=== PATIENT | female | born 1960 | race Caucasian/White ===

== ENCOUNTER 2017-01-10 02:52 | Observation (INO) | payer BC ==
--- NOTE | ~2017-01-10 | CN ---
Consultation Report [facility] [address] [place]. [address] NAME: NIKO CARLIN : 56 STATUS : ADM Selena PAT#: [id number] AGE: 56 ADM/REG DATE : 01/10/17 MR#: [id number] REPORT SERV DATE: 01/10/17 DICTATED BY: MARIANA WETZEL DATE: 01/10/17 REPORT STATUS : Draft TRANSCRIBED BY: MODL DATE: 01/10/17 PULMONARY CONSULTATION DATE OF CONSULTATION: 01/10/2017 REASON FOR CONSULTATION: Optimization of pulmonary status prior to planned vascular surgery. HISTORY OF PRESENT ILLNESS: Ms. Carlin is a 56-year-old white female smoker with a history of restrictive lung disease by PFTs done on 03/07/2015, who was admitted secondary to left lower lobe ischemia. Pulmonary was consulted for assistance with optimization of pulmonary status prior to planned vascular surgery under general anesthesia in approximately two weeks. The patient is complaining of occasional dyspnea on exertion as well as occasional nonproductive cough and wheezing for the past two to three years. She denies sputum production, chest pain, chest tightness, or orthopnea. She states she has never been on pulmonary maintenance medications, but was on the metered dose inhaler (? albuterol) with bronchitis more than one year ago. She denies a diagnosis of COPD or asthma. She is also complaining of hypersomnolence, snoring, and nonrestorative sleep. She has never been evaluated for possible obstructive sleep apnea though she describes "sleeping problems" for which she takes "a sleeping pill." She states she has had prior back surgery, ankle surgery, and a previous hysterectomy. These were all done many years ago and she has no problems with general anesthesia. PAST MEDICAL HISTORY: 1. Smoking/tobacco addiction. 2. Anxiety. 3. Previous back surgery. 4. Previous hysterectomy. 5. Previous left ankle surgery. 6. Vascular disease as noted above. 7. No prior Pneumovax or Prevnar 13 vaccine. FAMILY HISTORY: Daughter has asthma. SOCIAL HISTORY: Ms. Carlin smokes one pack of cigarettes per day and has been a smoker for more than 20 years. She denies ethanol intake, past/present drug use, or chewing tobacco. She denies occupational exposures. She is recently retired from work as a cook for [employer]. She is and has three children. Consultation Report [facility] [address] [place]. [address] NAME: NIKO CARLIN : 56 STATUS : ADM Selena PAT#: [id number] AGE: 56 ADM/REG DATE : 01/10/17 MR#: [id number] REPORT SERV DATE: 01/10/17 DICTATED BY: MARIANA WETZEL DATE: 01/10/17 REPORT STATUS : Draft TRANSCRIBED BY: CHRISTIANO DATE: 01/10/17 MEDICATIONS: Outpatient and inpatient medications were reviewed and are as documented in the record. As noted above, she was on no pulmonary medications prior to admission. REVIEW OF SYSTEMS: A 14-point system review was conducted and is remarkable for the symptoms as described in the history of present illness. PHYSICAL EXAMINATION: VITAL SIGNS: Temperature 97.7 degrees, heart rate 62, blood pressure 155/77, respiratory rate 18, and oxygen saturation 92% on room air. GENERAL: Pleasant obese white female. Alert, oriented, in no apparent distress. HEENT: Normocephalic. Atraumatic. There is no scleral icterus. Conjunctivae are clear. The oropharynx is clear. NECK: Supple. No lymphadenopathy was noted. LUNGS: There are slightly diminished breath sounds throughout. There are no crackles, wheezes, or rhonchi. HEART: Regular rate and rhythm. No ectopy was noted. ABDOMEN: Soft. Nontender. Nondistended. There are normal bowel sounds in all four quadrants. BILATERAL EXTREMITIES: There is trace pretibial edema bilaterally. There is cyanosis of the left toes. There are diminished peripheral pulses, left more than right. There is no clubbing. NEUROLOGICAL: Limited exam was conducted. It was found to be nonfocal. SKIN: No rashes were noted. ASSESSMENT AND PLAN: Ms. Carlin is a 56-year-old white female smoker with a history of restrictive lung disease, as well as dyspnea, cough and wheezing for the past two to three years. As noted above, she was on no outpatient pulmonary medications. Additionally, she has symptoms suggestive of obstructive sleep apnea including hypersomnolence, snoring, and nonrestorative sleep. RECOMMENDATIONS: Outpatient pulmonary function testing to assess for possible COPD - she will be scheduled for an outpatient followup appointment in my office within next 7 to 10 days. We will hold off on starting her on maintenance medications as this may skew her pulmonary function test. While as an inpatient, she will be treated with albuterol via nebulization. Maintenance medications will be started if indicated after review of her outpatient pulmonary function testing. Outpatient polysomnogram - as noted above, she has symptoms suggestive of sleep apnea. She will be scheduled for an outpatient polysomnogram. She is agreeable to wear CPAP if indicated. The plan for this polysomnogram and possible obstructive sleep apnea will not interfere with planned surgery. Baseline chest x-ray while she is an inpatient. Consultation Report [facility] [id number] [place]. [address] NAME: NIKO CARLIN : 56 STATUS : ADM Selena PAT#: [id number] AGE: 56 ADM/REG DATE : 01/10/17 MR#: [id number] REPORT SERV DATE: 01/10/17 DICTATED BY: MARIANA WETZEL DATE: 01/10/17 REPORT STATUS : Draft TRANSCRIBED BY: CHRISTIANO DATE: 01/10/17 I recommend she has a Prevnar 13 vaccine - this will be given to her in the Pulmonary office at her upcoming appointment. I recommend she continues to abstain from smoking as this will improve her postoperative course and decrease potential complications from surgery. She was counseled for more than five minutes regarding the importance of smoking cessation and possible adverse effects of tobacco use. Thank you very much for this consultation. Further recommendations to follow after her outpatient visit in the Pulmonary Clinic within the next 7 to 10 days. TALAT/CHRISTIANO Mariana Wetzel M.D. / [id number] CC: Vincent Groves M.D. UNKNOWN
[~2017-01-10 02:52] MED LIST: ASAB PO; GABAPENTIN; KLONO1 PO; KLONO5; PERCOCET 7.5/321 TAB PO
[2017-01-10] MEDS ORDERED: PERCOCET 7.5/321 TAB PO (16:32)
[2017-01-10] MEDS ORDERED: ASAB PO (16:32)
[2017-01-10] MEDS ORDERED: KLONO5 PO (16:33)
[2017-01-10] MEDS ORDERED: NEUR600 PO (16:33)
[2017-01-10] MEDS ORDERED: CENTRUM PO (16:33)
[2017-01-11] MEDS ORDERED: LIPITOR40 PO (18:23)
[2017-01-11] MEDS ORDERED: PERCOCET 10/3251 TAB PO (18:24)
[2017-02-07] MEDS ORDERED: BREO ELLIPTA INH (15:56)
== END 2017-01-11 18:42 | disposition home or self-care (01) ==
LOC: 2SO 02:52
DX: Z01.810 Encounter for preprocedural cardiovascular examination (principal); J98.4 Other disorders of lung; I99.8 Other disorder of circulatory system; I70.202 Unspecified atherosclerosis of native arteries of extremities, left leg; F41.9 Anxiety disorder, unspecified; F17.210 Nicotine dependence, cigarettes, uncomplicated; Z98.890 Other specified postprocedural states; Z90.710 Acquired absence of both cervix and uterus; Z82.5 Family history of asthma and other chronic lower respiratory diseases; Z82.49 Family history of ischemic heart disease and other diseases of the circulatory system; Z79.82 Long term (current) use of aspirin; Z79.899 Other long term (current) drug therapy
CPT/HCPCS: 71010; 78492; 85730; 93005; 93017; 93306; 94640; 96372; 96374; 96375; 96376; A9270-GY; A9555; G0378; J1170; J2405; J2785

== ENCOUNTER 2017-02-11 06:11 | Inpatient (IN) | payer BC ==
[2017-02-07 11:15] LABS: HEMATOCRIT 37.7 % (36.0-48.0); HEMOGLOBIN 12.6 g/dL (12.0-16.0)
--- NOTE | ~2017-02-11 | DS ---
Discharge Summary [facility] [address] [place]. [address] NAME: NIKO WALLS : 56 STATUS : DIS IN PAT#: [id number] AGE: 56 ADM/REG DATE : 02/11/17 MR#: [id number] REPORT SERV DATE: 02/24/17 DICTATED BY: VINCENT GROVES DATE: 02/24/17 REPORT STATUS : Draft TRANSCRIBED BY: CHRISTIANO DATE: 02/24/17 Data Collection from hospitalization DISCHARGE DIAGNOSES: 1. [place] 4 chronic left lower extremity ischemia. 2. Severe peripheral arterial disease. 3. Asthma. 4. Obesity. 5. Hypercholesterolemia. 6. Tobacco abuse. 7. Chronic obstructive pulmonary disease. CONSULTATIONS: None. PROCEDURES: Aortogram with left lower extremity runoff, percutaneous thrombectomy of the left common iliac, external iliac, and common femoral artery using a [employer] CAT8 thrombectomy device, open thromboendarterectomy of the left common femoral artery and deep femoral artery, left external iliac artery stent, left common femoral artery angioplasty 02/11/2017. PATHOLOGY: Arterial biopsies, left common femoral and common external iliac arteries- organizing clot. DISCHARGE MEDICATIONS: 1. Aspirin 81 mg daily. 2. Lipitor 40 mg daily. 3. Klonopin 0.5 mg at bedtime. 4. Breo Ellipta one puff via inhaler daily. 5. Centrum tablets one tablet daily. 6. Percocet 5/325 mg one to two tablets every 4 hours as needed. 7. Percocet 10/325 mg one tablet every 3 hours as needed. 8. Xarelto 20 mg as instructed. CONDITION AT DISCHARGE: Stable. DISPOSITION: The patient was discharged home on a low-sodium, low-cholesterol, cardiac diet with activities as instructed. She would follow up with me two to three weeks following discharge. She would follow up with Dr. Ravinder Johnston two weeks following discharge. HOSPITAL COURSE: This is a 56-year-old female who is an overweight smoker who presented to [facility] with the sudden onset of ischemic rest pain in the left lower extremity. This was a slightly delayed presentation. It was suspected that this was a thromboembolic event, but an arteriogram demonstrated a left common iliac artery occlusion that seemed somewhat hard. I attempted to cross this, but was unsuccessful. In retrospect, I felt that this was related to atherosclerosis with ischemic rest pain. She underwent a preoperative workup for an open intervention and returns now having treated her groin infection as well as with medical optimization. She is now consented for angiography with intervention and possible bypass. She was admitted to the hospital at this time for further evaluation and Discharge Summary [facility] [place] [address] [place]. [address] NAME: NIKO WALLS : 56 STATUS : DIS IN PAT#: [id number] AGE: 56 ADM/REG DATE : 02/11/17 MR#: [id number] REPORT SERV DATE: 02/24/17 DICTATED BY: VINCENT GROVES DATE: 02/24/17 REPORT STATUS : Draft TRANSCRIBED BY: CHRISTIANO DATE: 02/24/17 treatment. Upon admission, she was taken to the operating room where she underwent the above-mentioned procedure. She tolerated this well and there were no complications. On postop day #1, she had no new complaints. She was afebrile. She had palpable pulses in both feet. Heparin- Coumadin were continued. Over the next couple of days, she continued to progress. INR level was 1.3. Her incisions were clean, dry, and intact. Discharge planning was performed. On 02/14/2017, she said she felt great. Her groin site looked good. She had palpable pedal pulses, but they were slightly irregular. INR level was 1.7. It was felt that she would need an outpatient cardiology evaluation. Discharge instructions were given. Due to her improved and stable condition, she was discharged home with the above-stated instructions. Information collected by: Grisel Cervantes I submit the above information as my discharge summary. NADIA/CHRISTIANO Vincent Groves M.D. / [id number] CC: Pauline Licea DO
--- NOTE | ~2017-02-11 | OP ---
Record Of Operation [facility] [address] [place]. [address] NAME: NIKO WALLS : 56 STATUS : ADM IN PAT#: [id number] AGE: 56 ADM/REG DATE : 02/11/17 MR#: [id number] REPORT SERV DATE: 02/12/17 DICTATED BY: VINCENT GROVES DATE: 02/12/17 REPORT STATUS : Draft TRANSCRIBED BY: MODL DATE: 02/12/17 DATE OF PROCEDURE: 02/11/2017 PREOPERATIVE DIAGNOSIS: [place] 4 chronic left lower extremity ischemia. POSTOPERATIVE DIAGNOSIS: [place] 4 chronic left lower extremity ischemia. PROCEDURES: 1. Aortogram with left lower extremity runoff. 2. Percutaneous thrombectomy of the left common iliac, external iliac, and common femoral arteries using a [employer] CAT8 thrombectomy device. 3. Open thromboendarterectomy of the left common femoral artery and deep femoral artery. 4. Left external iliac artery stent. 5. Left common femoral artery angioplasty. SURGEON: Vincent Groves MD SENIOR STORAGE ADMINISTRATOR: Arianna Etienne MD ANESTHESIA: General. INDICATIONS: The patient is an overweight smoker who presented to [facility] with sudden onset of ischemic rest pain in her left lower extremity. This was a slightly delayed presentation. I suspected that this was a thromboembolic event, but an arteriogram demonstrated a left common iliac artery occlusion that seemed somewhat hard. I attempted to cross this, but was unsuccessful. In retrospect, I thought that this was related to atherosclerosis with ischemic rest pain. She underwent a preoperative workup for an open intervention and returns now, having treated her groin infections as well as with medical optimization. She has now consented for angiography with intervention and possible bypass. DESCRIPTION OF PROCEDURE: After informed consent was obtained, the patient was taken to the operating room and placed in the supine position on the operating table. She was intubated and general anesthesia was administered. Her lower abdomen, groins, and thighs were prepped and draped in the usual sterile fashion. I began with an ultrasound examination of the left common femoral artery. It looked like there was stenosis within the left common femoral artery, but it previously had appeared occluded. This was a different finding than before. Thus, ultrasound-guided access was obtained of the left common femoral artery using a micropuncture technique. An oblique angiogram confirmed puncture within the anterior common femoral artery. I passed a wire up into the aorta with some difficulty. I obtained an angiogram, demonstrating my presence within the true lumen of the aorta. It looked like the left common iliac artery was occluded, but the right common iliac artery was patent. Ultrasound-guided access was then obtained of the right common femoral artery using a micropuncture technique. An oblique angiogram confirmed puncture within the anterior common femoral artery. I passed a wire up into the aorta and placed a 7-Montserratian sheath. A UF catheter was placed into the perirenal aorta. An aortogram demonstrated no hemodynamically significant aortic disease. The renal arteries were patent. The left common iliac artery Record Of [facility] [address] [place]. [address] NAME: NIKO WALLS : 56 STATUS : ADM IN [facility]#: [id number] AGE: 56 ADM/REG DATE : 02/11/17 MR#: [id number] REPORT SERV DATE: 02/12/17 DICTATED BY: VINCENT GROVES DATE: 02/12/17 REPORT STATUS : Draft TRANSCRIBED BY: CHRISTIANO DATE: 02/12/17 was occluded as mentioned before. The right common iliac and external iliac arteries were patent. The right internal iliac artery was patent, but the left internal iliac artery was occluded. I then performed a Penumbra thrombectomy of the left common iliac and external iliac arteries as well as the proximal common femoral artery using a Penumbra CAT8 device. While there was some thrombus removed, it looked like there was either a dissection or chronic thrombus within the left common iliac artery. It also looked like there was minimal flow through the common femoral artery. The profunda had no flow. More distal runoff was not well visualized. I then went up and over the aortic bifurcation from a right transfemoral approach and placed a catheter into the left common femoral artery and SFA. I obtained an angiogram that demonstrated flow through the SFA. The popliteal artery was patent. There was two-vessel runoff via the posterior tibial and peroneal arteries. The proximal anterior tibial artery appeared to be occluded or at least tightly stenotic. There was some flow distal to this in the anterior tibial artery. The arteries otherwise seem normal. Given the fact that there was no flow in the profunda and some of this appeared to be thrombus, I made a skin incision along the left groin. I dissected out the common femoral artery. I dissected out the proximal profunda and the SFA. I had systemically heparinized earlier and I re-dosed throughout the procedure. I created a longitudinal arteriotomy on the left common femoral artery extending onto the origin of the profunda. There was a chronic-appearing thrombus within the left common femoral artery. It extended into the profunda as well as the origin of the SFA. I therefore performed a thromboendarterectomy of the left common femoral artery as well as deep femoral artery. I included the proximal SFA in this. I removed some of the plaque as well as the thrombus. I passed a 4-Montserratian Win catheter into the profunda and pulled out thrombus. I passed a Win catheter into the SFA and did not pull out any thrombus or plaque. I passed my 4- Montserratian Win catheter with some difficulty over a wire into the aorta and pulled it back. I did pull out a little bit of plaque and a little bit of chronic thrombus. I made several passes and was unable to clear up what was in the left common iliac artery. It was still unclear as to whether this was a dissection or some chronic thrombus. I used a 5-Montserratian Win catheter to perform a thrombectomy also. I was unsuccessful. I ultimately concluded that this may have been either a chronic thrombus or a dissection, potentially the latter. I stented the left common iliac artery with an 8 x 59 mm iCAST stent that extended into the left external iliac artery. Imaging obtained afterwards showed a great result. I then used a bovine pericardial patch to patch the left common femoral artery all the way onto the left profunda. I flushed of air and debris before tying down the sutures. Afterwards, there was no pulse in the left common femoral artery. I opened up the patch and passed a catheter proximally. While I did not retrieve any thrombus, there was a great flow. I closed up the hole in the patch. I placed the catheter up and over the aortic bifurcation from a right transfemoral approach and obtained additional imaging that demonstrated a little bit of irregularity in the proximal left common femoral artery. This was very subtle, but I thought clinically significant given the fact that I had a little bit of difficulty passing my Win catheter proximally and I initially did not have a pulse after restoring flow with patch placement. I therefore angioplastied the proximal common femoral artery with a 6 mm balloon. While there was no waist in the balloon, subsequent imaging showed marked improvement. At this point, I withdrew my wire, catheter, and sheath and used a ProGlide device to close the right groin arteriotomy. The left groin was washed out and closed in layers. The patient tolerated the procedure well without any intraprocedural complications noted. Record Of Operation [address] [place]. [address] NAME: NIKO WALLS : 56 STATUS : ADM IN PAT#: [id number] AGE: 56 ADM/REG DATE : 02/11/17 MR#: [id number] REPORT SERV DATE: 02/12/17 DICTATED BY: VINCENT GROVES DATE: 02/12/17 REPORT STATUS : Draft TRANSCRIBED BY: CHRISTIANO DATE: 02/12/17 NUCLEAR OPERATIONS SPECIALIST/CHRISTIANO Vincent Groves M.D. / [id number] CC: Pauline Licea DO
[~2017-02-11 06:11] MED LIST changes: +BREO ELLIPTA INH; +CENTRUM PO; +KLONO5 PO; +LIPITOR40 PO; +NEUR600 PO; +PERCOCET 10/3251 TAB PO
[2017-02-11 07:46] LABS: BUN (BLOOD UREA NITROGEN) 21 MG/DL (6-23); CALCIUM, SERUM 8.8 MG/DL (8.5-10.4); CHLORIDE, SERUM 108 MMOL/L (96-112); CO2 (CARBON DIOXIDE) 26 MMOL/L (24-34); CREATININE 0.79 MG/DL (0.55-1.02); GFR AFRICAN AMERICAN 96 ML/MIN (>=60); GFR NON AFRICAN AMERICAN 83 ML/MIN (>=60); GLUCOSE, SERUM 129 MG/DL (60-99); SODIUM, SERUM 142 MMOL/L (135-148)
[2017-02-12 05:18] LABS: BASOPHILS 0 %; EOSINOPHILS 0.1 %; EOSINOPHILS ABSOLUTE 0.01 10/3/uL (0.0-0.53); HEMOGLOBIN 10.7 g/dL (12.0-16.0); IMMATURE GRANULOCYTES 0.1 %; IMMATURE GRANULOCYTES ABSOLUTE 0.01 10/3/uL (0.0-0.11); LYMPHOCYTES 19.3 %; LYMPHOCYTES ABSOLUTE 2.29 10/3/uL (0.67-4.30); MEAN CORPUS HGB CONC 33.1 g/dL (32.0-36.0); MEAN CORPUSCULAR HEMOGLOB 28.9 pg (26.0-34.0); MEAN CORPUSCULAR VOLUME 87.3 fL (80-100); MEAN PLATELET VOLUME 11.5 fL (9.2-13.0); MONOCYTES 4.7 %; MONOCYTES ABSOLUTE 0.56 10/3/uL (0.21-1.20); NEUTROPHILS 75.8 %; NEUTROPHILS ABSOLUTE 9.02 10/3/uL (2.02-8.40); PLATELET COUNT 135 10/3/uL (150-400); RBC DISTRIBUTION WIDTH 13.1 % (12.0-16.0); WHITE BLOOD CELLS 11.9 10/3/uL (4.5-10.5)
[2017-02-12 05:19] LABS: HEMATOCRIT 32.3 % (36.0-48.0); MANUAL DIFF NO %
[2017-02-12 05:25] LABS: INTERNATIONAL NORMAL RATI 1.2 UNITS (-); PARTIAL THROMBO TIME 27.3 SEC (22.5-37.2)
[2017-02-12 05:26] LABS: PROTIME (NOT ORD) 14.9 SEC (12.0-14.5)
[2017-02-12 05:31] LABS: CALCIUM, SERUM 8.6 MG/DL (8.5-10.4); CHLORIDE, SERUM 107 MMOL/L (96-112); CO2 (CARBON DIOXIDE) 28 MMOL/L (24-34); CREATININE 0.84 MG/DL (0.55-1.02); GFR AFRICAN AMERICAN 89 ML/MIN (>=60); GFR NON AFRICAN AMERICAN 77 ML/MIN (>=60); GLUCOSE, SERUM 130 MG/DL (60-99); POTASSIUM, SERUM 4.3 MMOL/L (3.5-5.3); SODIUM, SERUM 142 MMOL/L (135-148)
[2017-02-12 05:33] LABS: BUN (BLOOD UREA NITROGEN) 13 MG/DL (6-23)
[2017-02-13 05:14] LABS: BASOPHILS 0.1 %; BASOPHILS ABSOLUTE 0.01 10/3/uL (0.0-0.16); BUN (BLOOD UREA NITROGEN) 14 MG/DL (6-23); CALCIUM, SERUM 8.4 MG/DL (8.5-10.4); CHLORIDE, SERUM 106 MMOL/L (96-112); CO2 (CARBON DIOXIDE) 30 MMOL/L (24-34); CREATININE 0.72 MG/DL (0.55-1.02); EOSINOPHILS 1.4 %; EOSINOPHILS ABSOLUTE 0.12 10/3/uL (0.0-0.53); GFR AFRICAN AMERICAN 107 ML/MIN (>=60); GFR NON AFRICAN AMERICAN 92 ML/MIN (>=60); GLUCOSE, SERUM 126 MG/DL (60-99); HEMATOCRIT 31.7 % (36.0-48.0); HEMOGLOBIN 10.4 g/dL (12.0-16.0); IMMATURE GRANULOCYTES 0.1 %; IMMATURE GRANULOCYTES ABSOLUTE 0.01 10/3/uL (0.0-0.11); INTERNATIONAL NORMAL RATI 1.3 UNITS (-); LYMPHOCYTES 31.9 %; LYMPHOCYTES ABSOLUTE 2.75 10/3/uL (0.67-4.30); MEAN CORPUS HGB CONC 32.8 g/dL (32.0-36.0); MEAN CORPUSCULAR HEMOGLOB 28.9 pg (26.0-34.0); MEAN CORPUSCULAR VOLUME 88.1 fL (80-100); MEAN PLATELET VOLUME 11.3 fL (9.2-13.0); MONOCYTES 4.4 %; MONOCYTES ABSOLUTE 0.38 10/3/uL (0.21-1.20); NEUTROPHILS 62.1 %; NEUTROPHILS ABSOLUTE 5.34 10/3/uL (2.02-8.40); PLATELET COUNT 133 10/3/uL (150-400); POTASSIUM, SERUM 3.9 MMOL/L (3.5-5.3); PROTIME (NOT ORD) 16.3 SEC (12.0-14.5); RBC DISTRIBUTION WIDTH 13.4 % (12.0-16.0); SODIUM, SERUM 140 MMOL/L (135-148); WHITE BLOOD CELLS 8.6 10/3/uL (4.5-10.5)
[2017-02-13 05:19] LABS: MANUAL DIFF NO %
[2017-02-13 07:48] LABS: PARTIAL THROMBO TIME 29.6 SEC (22.5-37.2)
[2017-02-14 04:52] LABS: INTERNATIONAL NORMAL RATI 1.7 UNITS (-)
[2017-02-14 04:53] LABS: PROTIME (NOT ORD) 19.7 SEC (12.0-14.5)
[2017-02-14] MEDS ORDERED: XARELTO20 MG PO (10:51)
[2017-02-14] MEDS ORDERED: PCET PO (10:54)
== END 2017-02-14 12:21 | disposition home or self-care (01) | DRG 272 ==
LOC: SDC 06:11 → SDC/OF 12:34 → 2SO 15:33
PROVIDERS: Surgery
PROC: 04CD3ZZ Extirpation of Matter from Left Common Iliac Artery, Percutaneous Approach (ICD-10-PCS; principal; 2017-02-11 08:15)
PROC: B41D1ZZ Fluoroscopy of Aorta and Bilateral Lower Extremity Arteries using Low Osmolar Contrast (ICD-10-PCS; 2017-02-11 08:15)
PROC: 04CD0ZZ Extirpation of Matter from Left Common Iliac Artery, Open Approach (ICD-10-PCS; 2017-02-11 08:15)
PROC: 04CJ3ZZ Extirpation of Matter from Left External Iliac Artery, Percutaneous Approach (ICD-10-PCS; 2017-02-11 08:15)
PROC: 04CL3ZZ Extirpation of Matter from Left Femoral Artery, Percutaneous Approach (ICD-10-PCS; 2017-02-11 08:15)
PROC: 047J3DZ Dilation of Left External Iliac Artery with Intraluminal Device, Percutaneous Approach (ICD-10-PCS; 2017-02-11 08:15)
PROC: 047L3ZZ Dilation of Left Femoral Artery, Percutaneous Approach (ICD-10-PCS; 2017-02-11 08:15)
DX: I70.222 Atherosclerosis of native arteries of extremities with rest pain, left leg (principal); J44.9 Chronic obstructive pulmonary disease, unspecified; F17.210 Nicotine dependence, cigarettes, uncomplicated; E78.5 Hyperlipidemia, unspecified; E78.00 Pure hypercholesterolemia, unspecified; K57.90 Diverticulosis of intestine, part unspecified, without perforation or abscess without bleeding; Z86.718 Personal history of other venous thrombosis and embolism; Z98.890 Other specified postprocedural states; Z82.5 Family history of asthma and other chronic lower respiratory diseases; Z82.49 Family history of ischemic heart disease and other diseases of the circulatory system
CPT/HCPCS: 35371; 36140; 36415; 37184; 37185; 37221; 37224; 75625; 75710; 80048; 85014; 85018; 85025; 85610; 85730; 86850; 86900; 86901; 87641; 88304; 93005; 94640; A9270-GY; C1725; C1757; C1760; C1769; C1874; C1894; J0690; J1170; J2250; J2370; J2405; J2710; J3010; Q9967